=== PATIENT | female | born 1990 | race Caucasian/White ===

== ENCOUNTER 2018-02-13 04:17 | Emergency (ER) | payer BC, SELFPAY ==
[2018-02-13] MEDS ORDERED: HYDROcodone/Acetaminophen 10/325 mg Tablet ONE (04:40)
[2018-02-13] MEDS ORDERED: Ibuprofen 800 MG TAB ONE (04:41)
[2018-02-13] MEDS ORDERED: AMOXicillin 250 MG CAP ONE (04:41)
== END 2018-02-13 04:44 | disposition home or self-care (01) ==
LOC: BURERS 04:17
DX: K08.89 Other specified disorders of teeth and supporting structures (principal)
CPT/HCPCS: 99282

== ENCOUNTER 2018-03-26 13:47 | Emergency (ER) | payer BC ==
[2018-03-26 14:13] LABS: #Eosinphils 0.2 thou/uL (0.0-0.7); #Monocytes 0.5 thou/uL (0.11-0.59); #Neutrophils 3.4 thou/uL (1.40-6.50); %Basophils 0.7 % (0.0-1.0); %Eosinophils 3.1 % (0.0-10.0); %Lymphocytes 32.7 % (21.0-51.0); %Monocytes 8.5 % (0.0-10.0); %Neutrophils 54.9 % (42.0-75.0); Hemoglobin 14.8 g/dL (12.0-16.0); Mean Corpuscular HGB CONC 36.4 g/dL (32.0-36.0); Mean Corpuscular Hemoglobin 31.1 pg (27.0-31.0); Mean Corpuscular Volume 85.4 fl (81.0-99.0); Mean Platelet Volume 8.5 fL (7.4-10.4); Platelet Count 201 thou/uL (130-400); Red Blood Cell (RBC) Count 4.76 mill/uL (4.20-5.40); White Blood Cell (WBC) Count 6.2 thou/uL (4.8-10.8)
[2018-03-26 14:28] LABS: Anion Gap 17 mmol/L (10-20); BUN (Urea Nitrogen) 14 mg/dL (7.0-18.7); Calc. Creatinine Clearance 0 mL/min (70-130); Carbon Dioxide 23 mmol/L (22-29); Chloride 106 mmol/L (98-107); Estimated GFR-MDRD 89; Glucose 94 mg/dL (70-105); Sodium 142 mmol/L (136-145)
[2018-03-26 14:32] LABS: CKMB 0.6 ng/mL (0-6.6); Troponin I Less than 0.010 ng/mL (< 0.028)
[2018-03-26 15:43] LABS: Troponin I Less than 0.010 ng/mL (< 0.028)
--- NOTE | 2018-03-26 17:01 | RAD ---
AP PORTABLE CHEST: 03/26/2018 1400 HOURS FINDINGS: Normal sized heart and clear lungs. No infiltrate or effusion is seen. There is no vascular congest ion or edema. The mediastinum appears normal, and the trachea is midline. IMPRESSION: No acute thoracic findings. POS: HOME
== END 2018-03-26 16:02 | disposition home or self-care (01) ==
LOC: BURERS 13:47
DX: R07.89 Other chest pain (principal); Z79.899 Other long term (current) drug therapy
CPT/HCPCS: 71045; 80048; 82553; 84484; 85025; 93005

== ENCOUNTER 2021-08-14 16:20 | Emergency (ER) | payer BC | END 2021-08-14 17:13 | disposition home or self-care (01) | LOC: BURERS 16:20 | DX: R55 Syncope and collapse (principal); R51.9 Headache, unspecified | CPT/HCPCS: 93005 ==